=== PATIENT | male | born 1945 ===

== ENCOUNTER 2022-03-03 07:10 | Day surgery (SDC) | payer OTHER ==
[~2022-03-03] VITALS: Ht 172.7 cm; Wt 83.0 kg
[~2022-03-03 07:10] MED LIST: CALAN SR120 MG PO; CRESTOR10 MG PO; DAILY VALUE1 EACH PO; GABAPE PO; JANUVIA100 MG PO; JARDIANCE25 MG PO; PROTONIX40 MG PO
[2022-03-03] MEDS ORDERED: PERCOCET 5-3251 EACH PO (18:55)
[2022-03-03] MEDS ORDERED: NEURONTIN600 M1 PO (18:55)
[2022-03-03] MEDS ORDERED: POLY119PG PO (18:55)
== END 2022-03-03 21:20 | disposition home or self-care (01) ==
LOC: CIR.AMB 07:10
PROVIDERS: ATTEND Surgery
DX: K40.90 Unilateral inguinal hernia, without obstruction or gangrene, not specified as recurrent (principal); I10 Essential (primary) hypertension; E78.5 Hyperlipidemia, unspecified; G47.33 Obstructive sleep apnea (adult) (pediatric); Z99.89 Dependence on other enabling machines and devices; Z87.891 Personal history of nicotine dependence
CPT/HCPCS: 49650; C1781